=== PATIENT | male | born 1995 ===

== ENCOUNTER 2016-09-18 13:22 | Inpatient (IN) | payer OTHER ==
[~2016-09-18] VITALS: Ht 172.7 cm; Wt 78.3 kg
[2016-09-18] VITALS (453 sets, daily range): BP systolic 89–123; BP diastolic 46–66; PULSE 60–76; TEMP 97.3–97.9; O2SAT 85–100
[2016-09-18 16:03] LABS: URIC ACID 9.8 mg/dL (3.5-8.5)
[2016-09-18 16:04] LABS: CREATINE KINASE 238 U/L (55-170)
[2016-09-18 16:07] LABS: C-REACTIVE PROTEIN < 0.5 mg/dL (0.0-0.9)
[2016-09-18 16:15] LABS: TROPONIN-I 0.036 ng/mL (0.000-0.034)
[2016-09-19] VITALS (529 sets, daily range): BP systolic 74–105; BP diastolic 49–67; PULSE 50–68; TEMP 97.2–98; O2SAT 86–100
[2016-09-19 11:15] LABS: ADJUSTED CALCIUM 8.7 mg/dL (8.4-10.2); ALANINE AMINOTRANSFERASE 36 U/L (21-72); ALBUMIN 4.7 gm/dL (3.5-5.0); ALKALINE PHOSPHATASE 70 U/L (50-136); ANION GAP 12 mmol/L (7-16); BILIRUBIN,TOTAL 1.3 mg/dL (0.0-1.0); BLOOD UREA NITROGEN 17 mg/dL (9-20); CALCIUM 9.3 mg/dL (8.4-10.2); CARBON DIOXIDE 28 mmol/L (22-30); CHLORIDE 102 mmol/L (98-107); GLUCOSE 86 mg/dL (74-106); MAGNESIUM 2.1 mg/dL (1.6-2.3); POTASSIUM 4.1 mmol/L (3.4-5.0); SODIUM 142 mmol/L (137-145); TOTAL PROTEIN 7.6 gm/dL (6.4-8.2)
[2016-09-19 11:27] LABS: TROPONIN-I < 0.012 ng/mL (0.000-0.034)
[2016-09-19] MEDS ORDERED: COLCRYS0.6 MG PO (16:00)
[2016-09-19] MEDS ORDERED: IBU800 M1 PO (16:00)
== END 2016-09-19 16:50 | disposition home or self-care (01) | DRG 316 ==
LOC: ICU 13:22 → JCC 14:34 → ICU 14:34 → JCC 09-19 10:55
PROVIDERS: Internal Medicine
DX: I30.9 Acute pericarditis, unspecified (principal)
CPT/HCPCS: 99223-AI; 99239

== ENCOUNTER → 2018-09-30 | Outpatient (CLI) | payer OTHER ==
[~2018-09-30] MED LIST: COLCRYS0.6 MG PO; IBU800 M1 PO
== END ==
LOC: MC.RAD 13:53
DX: Z12.31 Encounter for screening mammogram for malignant neoplasm of breast (principal)